=== PATIENT | male | born 1995 | race Caucasian/White ===

== ENCOUNTER 2017-07-17 07:00 | Outpatient (RCR) | payer OTHER, SELFPAY ==
[2017-06-03 06:21] VITALS: BP 112/78; BMI 36.9
--- NOTE | 2017-06-15 08:17 | HP.PTEVAL_ITS ---
Patient's Visit Information JEROME FRANCISCO is a 21 year old M referred to Physical Therapy by SHARI Castanon with a diagnosis of vertigo. Date of Evaluation: 06/15/17 Physical Therapist: Kem Nam DPT, OC - Visit Plan Frequency: 2x /Week Duration: 4 Weeks Plan: 2-3x/week for 4 weeks for progression of vestibular adaptation and habituation exercises. Also to do adaptation in PT with balance challenges. - Subjective Subjective: Got hit with bucket of excavator while sitting on blake pot. That was Apr 13 last year, two months ago. LUNDBERG have subsided, gets dizzyness now which is subtly constantly, intensified with high level activity, bending over, loading grocerys at store. That lasts for a while, hours. Then it gets better. 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 Worse during work and better after work. Sleep is OK. Activities at home are normal. Dizzy described as spinning and lightheaded. No prior history of dizzyness lately. 2 kids and in school. Concentrate in class is OK, reading for a while can lag with eyes adjusting. Kids are 5 and 3. Is on no ladder restriction at work. Has not fallen but sometimes feels like he could and needs to stop and hold onto wall. Not sure what leads to this, they are few and far between. - Objective Walks and transfers I into PT. C/s AROM WFL and without symptoms. - B hallpike bridger and - roll test. Balance is good. steps are reciprocal without rail. VOR walking is moderately symptomatic. Oculomotor... No nystagmus with gaze or head shake. - skew eye deviation. - head thrust. Pursuit is normal and asymptomatic. Saccades is normal and asymptomatic. VOR is mildly symptomatic for short duration. - Balance Scores Functional Gait Assessment Score: 30 % Disability: 0 - Goals Goal 1:: abolish dizzyness with work. Goal Time Frame: 4-6 Weeks Goal 2:: Patient feel back to 100% nromal with activity and studying. Goal Time Frame: 4-6 Weeks - Rehabilitation Potential Physical Therapy Diagnosis: central vertigo form concussion. Rehabilitation Potential: Good - Anticipated Interventions Patient/Client Instruction: Educate patient on: Condition, Plan of Care For the Purpose of:: To increase tolerance to activity/condition/position Comment: adaptation and habituation. For the Purpose of:: To increase tolerance to activity/condition/position, To improve ability of physical actions for home/community/work/leisure Thank you for the opportunity to evaluate your patient. For Medicare and Medicare HMO plans, please review the plan of care and approve it. It will need to be FAXED BACK to us at [phone] for Medicare purposes. Please let me know if there are questions or concerns regarding this plan of care. Physician Signature: Date:
--- NOTE | 2017-07-17 07:14 | HP.PTDCSUM_ITS ---
HP - PT D/C Summary It has been my pleasure to treat JEROME FRANCISCO under orders from SHARI Castanon, for the diagnosis of vertigo for a total of 7 visit(s). Discharge Date: 07/17/17 Please see the following information for a summary of their discharge status. - Subjective Subjective: Climbed ladders and doing OK. No symptoms since Thursday. Likely will cancel f/u with neurologist as he is doing well. Life normal, work normal except big ladder. - Overall Improvement % Improvement: 100 - Objective Objective/Function: No symptoms with MSQ positions. VOR x2 busy walking is good , SLS and tandem challenging balance luis but no symptoms. - Goals Goal 1:: abolish dizzyness with work. Goal Progress: Goal Met Goal 2:: Patient feel back to 100% nromal with activity and studying. Goal Progress: Goal Met - Plan Plan: D/C - D/C Information Discharge Comments: Pt doing well and will let doctor know if symptoms return. If there are questions or concerns regarding this patient's physical therapy, please feel free to call me at [phone]. Thank you for the referral of this patient. Sincerely, Kem Nam, DPT, OC
== END 2017-07-17 19:00 | disposition home or self-care (01) ==
LOC: PT 07:00
PROVIDERS: Visit Provider Physician Assistant
DX: S06.0X0D Concussion without loss of consciousness, subsequent encounter (principal)
CPT/HCPCS: 97110; 97162; 97530

== ENCOUNTER → 2020-01-23 17:43 | Outpatient (CLI) | payer BC, SELFPAY ==
[2017-07-02 06:11] VITALS: BMI 36.9
== END ==
PROVIDERS: PCP Family Medicine; Referring Provider Nurse Practitioner Family; Visit Provider Nurse Practitioner Family
DX: Z20.828 Contact with and (suspected) exposure to other viral communicable diseases (principal)
CPT/HCPCS: 87635; C9803; U0003

== ENCOUNTER → 2020-06-01 15:31 | Outpatient (CLI) | payer OTHER, SELFPAY ==
[2017-07-02 06:11] VITALS: BMI 36.9
[2020-06-01 16:23] LABS: Absolute Lymphocyte Count 1.96 X10^3/uL (0.83-4.51); Absolute Neutrophil Count 7.4 X10^3/uL (2.0-7.7); Basophil# 0.05 X10^3/uL; Basophil% 0.5 % (0-1); Eosinophil# 0.21 X10^3/uL; Hematocrit 45.6 % (40-54); Hemoglobin 14.8 g/dL (13.0-16.5); Lymphocyte # 1.96 X10^3/ul (4.0); Lymphocyte % 18.8 % (19-41); Mean Corp Hgb Conc 32.5 g/dL (32-36); Mean Corpuscular Hgb 27.9 pg (27.0-32.0); Mean Corpuscular Volume 85.9 fL (80-94); Mean Platelet Vol. 10.3 fl (6.2-12.0); Monocyte# 0.77 X10^3/uL; Monocyte% 7.4 % (0-10); NRBC Flagged by Analyzer 0 % (0-5); Neutrophil # 7.39 X10^3/uL (2.7-7.7); Neutrophil % 70.9 % (47-70); Platelet Count 315 K/mm3 (150-450); RBC Distribution Width CV 11.9 % (11.6-14.6); RBC Distribution Width SD 37.9 fl (35.1-43.9); Red Blood Count 5.31 M/mm3 (4.6-6.2); White Blood Count 10.4 K/mm3 (4.4-11.0)
[2020-06-01 16:46] LABS: Anion Gap 7 (5-15); BUN 12 mg/dL (7-18); BUN/Creat Ratio 9.8 RATIO (10-20); Calcium,Total 9.1 mg/dL (8.5-10.1); Chloride 107 mmol/L (98-107); Creatinine, Serum 1.22 mg/dL (0.70-1.30); EST Glomerular Filtration Rate 76 mL/min (>60); Est Glom Filt Rate - Afr Amer 92 mL/min (>60); Glucose 107 mg/dL (74-106); Potassium 3.5 mmol/L (3.5-5.1); Sodium Level 140 mmol/L (136-145)
== END ==
PROVIDERS: PCP Family Medicine; Visit Provider Specialist
DX: Z01.818 Encounter for other preprocedural examination (principal)
CPT/HCPCS: 36415; 80048; 85025

== ENCOUNTER → 2020-06-01 17:25 | Outpatient (CLI) | payer BC, SELFPAY ==
[2017-07-02 06:11] VITALS: BMI 36.9
== END ==
PROVIDERS: PCP Family Medicine; Referring Provider Specialist; Visit Provider Specialist
DX: Z11.59 Encounter for screening for other viral diseases (principal)
CPT/HCPCS: 87635; C9803; U0005; U0003

== ENCOUNTER 2020-11-08 05:58 | Day surgery (SDC) | payer OTHER, BC, SELFPAY ==
[2017-07-02 06:11] VITALS: BMI 36.9
--- NOTE | 2020-10-26 12:03 | EKG12_ITS ---
Test Reason : PREOP Blood Pressure : / mmHG Vent. Rate : 070 BPM Atrial Rate : 070 BPM P-R Int : 158 ms QRS Dur : 102 ms QT Int : 378 ms P-R-T Axes : 044 056 011 degrees QTc Int : 408 ms Normal sinus rhythm with sinus arrhythmia Normal ECG Confirmed by TONY WALL, DEXTER ([id number]), digital editor KASSY KAT ([id number]) on 10/31/2020 2:29:04 PM Referred By: Kd Dean Confirmed By:DEXTER JIMENEZ MD
--- NOTE | 2020-10-26 12:14 | RAD_ITS ---
STUDY: X-RAY CHEST REASON FOR EXAM: Male, 25 years old. PREOP TECHNIQUE: PA and lateral views of the chest. COMPARISON: None. FINDINGS: The lungs are clear and expanded. Scattered calcified granulomas. There is no demonstrated pleural abnormality. Normal size heart. Normal mediastinum and romie. Normal visualized pulmonary arteries. Normal visualized aortic arch and descending thoracic aorta. Normal visualized thoracic spine. Normal visualized ribs, clavicles, and shoulders. There is no demonstrated abnormality of the visualized soft tissue structures of the upper abdomen. RAD/Chest PA and Lateral IMPRESSION: Normal x-ray examination of the chest. Electronically Signed: Az Carroll MD at 15:17 EDT , Service support ,
[2020-10-26 13:40] LABS: Absolute Lymphocyte Count 1.67 X10^3/uL (0.83-4.51); Absolute Neutrophil Count 4.8 X10^3/uL (2.0-7.7); Basophil# 0.04 X10^3/uL; Basophil% 0.6 % (0-1); Eosinophil# 0.18 X10^3/uL; Eosinophils% 2.5 % (0-5); Hematocrit 44.7 % (40-54); Hemoglobin 14.9 g/dL (13.0-16.5); Lymphocyte # 1.67 X10^3/ul (0.83-4.51); Lymphocyte % 23.4 % (19-41); Mean Corp Hgb Conc 33.3 g/dL (32-36); Mean Corpuscular Hgb 28.5 pg (27.0-32.0); Mean Corpuscular Volume 85.6 fL (80-94); Mean Platelet Vol. 10.4 fl (6.2-12.0); Monocyte# 0.39 X10^3/uL; Monocyte% 5.5 % (0-10); NRBC Flagged by Analyzer 0 % (0-5); Neutrophil # 4.84 X10^3/uL (2.7-7.7); Neutrophil % 67.6 % (47-70); Platelet Count 291 K/mm3 (150-450); RBC Distribution Width CV 12.1 % (11.6-14.6); RBC Distribution Width SD 37.7 fl (35.1-43.9); Red Blood Count 5.22 M/mm3 (4.6-6.2); White Blood Count 7.2 K/mm3 (4.4-11.0)
[2020-10-26 13:49] LABS: International Normalized Ratio 1.1; Prothrombin Time (Protime)PT. 13.5 SECONDS (11.7-14.9)
[2020-10-26 13:50] LABS: Partial Thromboplast Time 27.6 Seconds (24.1-36.2)
[2020-10-26 14:02] LABS: Anion Gap 7 (5-15); BUN 17 mg/dL (7-18); Calcium,Total 9.1 mg/dL (8.5-10.1); Chloride 103 mmol/L (98-107); Creatinine, Serum 1.06 mg/dL (0.70-1.30); EST Glomerular Filtration Rate 89 mL/min (>60); Est Glom Filt Rate - Afr Amer 108 mL/min (>60); Glucose 116 mg/dL (74-106); Potassium 3.8 mmol/L (3.5-5.1); Sodium Level 141 mmol/L (136-145)
[2020-10-26 14:19] LABS: Hemoglobin A1c 5.4 % (3.8-5.6)
[2020-11-08 06:30] VITALS: BP 145/92; PULSE 75; RESP 16; TEMP 36.2; O2SAT 98; BMI 42.9
[2020-11-08] MEDS: Lactated Ringers 1,000 ML 100 ML IV ×2 (06:37→09:45)
--- NOTE | 2020-11-08 09:03 | RAD_ITS ---
STUDY: X-RAY - RIGHT ANKLE REASON FOR EXAM: Right ankle pain, intraoperative fluoroscopy for repair of osteochondral defect. TECHNIQUE: 8 intraoperative images of the ankle. COMPARISON: None. FINDINGS: There is syndesmotic fixation. There is an orthopedic plate and screws in the distal fibula. There is an osteochondral lesion of the medial talar dome. There is chronic fracture deformity of the posterior malleolus. 47.4 seconds of fluoroscopy time was used. Electronically Signed: Dennis Schofield MD at 13:04 EDT Tel , Service support , RAD/Ankle 2 Views
[2020-11-08 10:13] VITALS: BP 124/88; BP 145/92; PULSE 86; RESP 14; TEMP 36.2; O2SAT 94
--- NOTE | 2020-11-08 10:15 | RAD_ITS ---
STUDY: X-RAY - RIGHT ANKLE REASON FOR EXAM: Postoperative evaluation of ORIF right distal tibiofibular syndesmosis and osteochondral talar dome lesion. TECHNIQUE: 3 view(s) of the ankle. COMPARISON: Intraoperative images. FINDINGS: There is an orthopedic plate and screws transfixing a distal fibular fracture. There is chronic healed fracture deformity of the posterior malleolus. There is syndesmotic fixation. There is an osteochondral lesion of the medial talar dome. Normal visualized calcaneus. The visualized subtalar, talonavicular, calcaneocuboid and tarsal articulations are normal. There is soft tissue swelling. RAD/Ankle min 3 Views IMPRESSION: Postoperative changes from syndesmotic fixation an osteochondral lesion of the medial talar dome. ORIF of distal fibular fracture and healed posterior malleolar fracture. Electronically Signed: Dennis Schofield MD at 14:16 EDT Tel , Service support ,
--- NOTE | 2020-11-08 10:22 | PCM.DC ---
Discharge Instructions Diet Discharge Diet: Light diet - advance as tolerated Activity Discharge Activity: May Not Drive, May Not Shower, Use Walker and Use Crutches Weight Bearing Status: No weight bearing (to right leg) Keep extremity elevated above heart level: Right Leg Additional Activity Instructions:: 1. Keep dressing to right leg clean, dry, intact. Do not get dressing wet. Do not remove dressing. If get dressing wet, call office for further instruction. 2. Ice around the right knee 30 minutes every hour while awake as needed for pain. 3. Elevate right foot above level of heart as often as possible. Right foot should only be down to use restroom. 4. No walking/standing/placing any weight on right foot. Use crutches/walker/wheelchair for assistance. 5. Begin taking doxycycline (antibiotic) tomorrow, November 09, 2020. 1 pill twice a day as instructed. 6. Begin taking aspirin 81 mg tomorrow, November 09, 2020. 1 pill twice a day. #7. Begin taking Tramadol (pain medication) today, November 08, 2020 as needed and as instructed on the bottle. You may supplement the Tramadol with extra strength Tylenol (acetaminophen). Do not exceed 3000 mg of Tylenol in a 24-hour period. 8. Follow-up with Dr. Dean previously scheduled appointment. Dressing / Incision Call your doctor if your incision/area has: Sudden Increased Bleeding and Increased Pain/ Swelling Call your doctor if you observe: Fever of 101 or Higher, Coldness, Increased Pain, Inability to have a bowel movement, Shortness of breath, Chest pain, Increased palpitations (irregular heartbeat), Calf discomfort and Uncontrolled pain Change Dressing in: do not change dressing Cleanse incision/area with: Keep Dressing Clean & Dry Follow Up Care Please Follow Up With: carl dean When: in one week as previously scheduled Test Results: Test results from this visit will be discussed in further detail at your follow-up appointment, if applicable. Discharge Plan Admission Attending Provider: Carl Dean Primary Care Provider: Leon Waters Discharge Orders/Prescriptions Prescriptions: No Action fluoxetine [Prozac] 40 mg Capsule 40 mg PO DAILY RF: 0 Disposition Discharge Orders: Discharge Patient (Routine); Ordered 11/08/20 Ordered By: Dr. Carl Dean
--- NOTE | 2020-11-08 10:25 | PCM.OPRPT ---
Problems Associated Problem List Diagnoses (1) Syndesmotic disruption of right ankle: (2) Osteochondral defect of ankle: Report of Operation Date of Procedure: 11/08/20 Pre-Operative Diagnosis: 1. Right ankle osteochondral defect, unstable. 2. Right ankle syndesmotic disruption with chronic high ankle sprain Post-Operative Diagnosis: 1. Right ankle osteochondral defect, unstable. 2. Right ankle syndesmotic disruption with chronic high ankle sprai Surgery/Procedure Performed:: 1. Right ankle open reduction with internal fixation of syndesmosis. 2. Right ankle arthroscopic debridement. 3. Right ankle repair of osteochondral defect utilizing allograft Description of Surgical Findings:: Consistent with diagnosis. Removal of osteochondral defect performed with adequate application of cartilage graft. Good reapproximation had of the distal tibiofibular joint after repair of the syndesmosis Surgeon: Kd Dean goat herder: Samina Granados Type of Anesthesia: General/Regional (with a popliteal and adductor canal block given to the right lower extremity pre-operatively) Anesthesiologist: Teofilo Wright Special Medications: 3 grams of ancef given pre-operatively Specimen's removed: None Drains: None Estimated Blood Loss (mL): 10 Description of Procedure: Hemostasis: pneumatic thigh tourniquet placed at the level of the right thigh at 275 mmHg for 58 minutes. EBL: 10mL Materials: 1. Arthrex tight rope. 2. Arthrex bio cartilage. 3. Size 2-0 Vicryl. 4. Size 3-0 vicryl 4. Size 3-0 nylon Injectables: none Complications: none Condition: stable: Indications: Patient is a 25-year-old male with no significant past medical history who suffered a right ankle and foot leg injury in May 2020. Due to the injury that was present, patient underwent a right fibula open reduction with internal fixation with Dr. Ghulam Pelletier. Patient continued to have pain in his right ankle during his postoperative recovery. A MRI of the right ankle was ordered, and patient was referred to me for further evaluation. After reviewing the MRI, there was evidence of an unstable osteochondral defect and chronic high ankle sprain. I discussed conservative and surgical intervention. I discussed the surgical invention would include a right ankle joint arthroscopy with repair of the osteochondral defect, repair of the ankle joint syndesmosis. I discussed the risks and benefits of surgical intervention, including but not limited to delayed or nonhealing wounds, delayed or nonhealing bone/ligament, DVT, infection, decreased function of limb, continued pain, damage to surrounding structures, loss of limb, loss of life. All the patient questions were answered to his satisfaction and all of his concerns were addressed. No guarantees were made as to the outcome of the procedure. Patient understood all aspects of the procedure. Due to the injury that was present, continued pain and his active lifestyle, I recommended surgical intervention. Patient was agreeable to this, and surgery was planned for today, November 08, 2020. Operative report: Before the patient was brought to the operating room, the risks, benefits, possible outcomes, possible complications of the procedure were discussed with the patient once again. All the patient's questions were answered to his satisfaction and all of his concerns were addressed. No guarantees were made as to the outcome of the procedure. Patient understood all aspects of the procedure, and consent was then signed by the patient to proceed with the surgery. Before the patient brought to the operating room, anesthesiologist administered a popliteal and adductor canal block to the right lower extremity. Patient was then brought to the operating room placed on the operating table in the supine position. After timeout, 3 g of Ancef was given for antibiotic prophylaxis. General anesthesia was then obtained and anesthesia took control the airway and the IV access. Next, a well-padded pneumatic thigh tourniquet was placed the level of the right thigh. Next, the right lower extremity was held in the leg calderon with adequate padding placed on the posterior aspect of the right thigh and the popliteal fossa. The right foot, ankle, leg were then scrubbed, prepped, draped in the usual sterile manner. Elevation of the right lower extremity was followed by exsanguination via Esmarch and inflation the pneumatic thigh tourniquet to 275 mmHg. Attention was then directed to the anterior aspect of the right ankle. At this time, the ankle joint line along with the tibialis anterior tendon was palpated and marked. Next, approximately 40 mL of normal sterile saline was injected into the medial aspect of the ankle joint just medial to the tibialis anterior tendon. Immediate dorsiflexion was noted of the ankle joint. At this time, a stab incision was made at the medial aspect of the tibialis anterior tendon at the level of the ankle joint line. Blunt dissection was continued down deep to the level of the ankle joint capsule. Next, a trocar inserted to the cannula was placed at the surgical site and the trocar was used to penetrate the ankle joint capsule. Immediate backflow was noted. The trocar was then removed, and the arthroscope was inserted into the cannula. Visual inspection was then performed of the ankle joint. Chronic synovitic tissue was noted. Furthermore, the osteochondral defect that was present on MRI was noted the medial shoulder of the talar dome. This appeared unstable. Next, transillumination was performed to determine the level of the anterior lateral portal. A #11 blade was used to perform a stab incision at the level of the ankle joint on the anterior lateral aspect of the ankle and an area void of neurovascular structures. Blunt dissection was continued down deep to the level of the ankle joint capsule, which was penetrated. Backflow was noted. Next, a micropick was placed into the anterior lateral portal and triangulation was performed. Inspection was then performed the osteochondral defect which was deemed unstable. At this time, the micropick and the arthroscope were removed and the arthroscope was then placed into the anterior lateral portal. At this time, the shaver for debridement was placed into the anterior medial portal and shaving of the osteochondral defect and chronic synovitic tissue was performed. Next, the shaver was removed, and a hemostat was used to remove the osteochondral defect. This was then passed from the operative site. At this time, the micropick was used to perform subchondral penetration in the area of the osteochondral defect. Once adequate preparation of the osteochondral defect was performed, the ankle joint was suctioned to remove fluid. Once adequate fluid was removed, visual inspection was then performed of the osteochondral defect once again. The Arthrex bio cartilage was prepared, and the bio cartilage was placed through the anterior medial portal into the osteochondral defect. Adequate covering of the osteochondral defect was performed. Next, the fibrin glue was placed over the bio cartilage. Once adequate preparation and the positioning of the bio cartilage and the fibrin glue was performed, the arthroscope was then removed. The bio cartilage and fibrin glue set for period of 5 minutes. Once adequate setting was had, the pneumatic thigh tourniquet was then released and a prompt hyperemic response was noted to the right lower extremity. The leg was then removed from the leg calderon. The subcutaneous tissues at the arthroscope sites were reapproximated coapted utilizing size 3-0 Vicryl. The skin was reapproximated coapted utilizing 3-0 nylon in a horizontal mattress fashion. At this time, live radiograph evaluation was used to determine the level of the ankle joint, syndesmosis, and lateral aspect of the fibula. Furthermore, the hole of the fibula plate that corresponded to the syndesmosis was identified. These were all marked on the patient. Attention was then directed to the lateral aspect of the right ankle near the lateral malleolus. At this time, #15 blade was used to perform a linear longitudinal incision at the level of the open hole of the fibular plat. Incision was approximately 2 cm in length. The incision was deepened utilizing sharp and blunt dissection. Care was taken retract all vital neural and vascular structures. All bleeders were cauterized and ligated as necessary. Next, a linear periosteal incision was made in line of the original skin incision. The periosteal capsular structures then reflected anteriorly and posteriorly, thus exposing the open hole of the fibula plate at the operative site. Reduction of the syndesmosis was performed. The clamp was used to reduce the syndesmosis from lateral to medial with the foot held in a neutral position. Adequate reduction of the syndesmosis was had. The open hole in the current fibula plate was then drilled appropriately, and to the Arthrex tight rope with were inserted into the plate from lateral to medial. Tightening of the Arthrex tight rope was performed in standard fashion. Once adequate tightening was had, all temporary fixation was then removed. Radiograph evaluation was then performed. Reduction of the syndesmosis was noted. The cotton and hook test were performed, and the syndesmosis was deemed stable at this time. Each surgical site was irrigated with copious amounts of normal sterile saline and irrisept. The periosteal and capsular structures of the surgical site was reapproximated and coapted utilizing size 2-0 Vicryl. The subcutaneous tissues of the surgical site was reapproximated and coapted utilizing size 3-0 Vicryl. The skin of the surgical site was reapproximated coapted utilizing size 3-0 nylon in a simple interrupted horizontal mattress fashion. Each surgical site was then dressed with Betadine soaked gauze, and a dry sterile dressing setting of 4 x 4 gauze, ABD pads, wrapped with Kerlix. The right foot and ankle were then wrapped in David bandage. Next, a stockinette was placed over the right lower extremity. Cast padding was wrapped in the metatarsal heads extending proximally to level just distal to the tibial tuberosity. A posterior splint was fashioned to the right lower extremity and was adhered to the right lower extremity utilizing David bandages. Care was taken make sure that the foot was held in a neutral position as the posterior splint dried. The patient tolerated the anesthesia the procedure well and was transported to the PACU with vital signs stable and neurovascular status intact to the right lower extremity. After period of postoperative monitoring, patient be discharged home with written and oral instructions for wound care and follow-up. The special events assistant, the physician registered sales assistant, was utilized throughout the entire procedure. She helped with patient positioning, holding of limb, holding retractors. She helped with exposure throughout. She helped with bandage application, and cast application. Without the surgical territory manager, surgical time would have been increased and surgical outcome could have been less optimal Admit VTE Documentation VTE Present on Admission: No (Patient to begin ASA 81mg BID starting 11/09 for DVT prophylaxis) VTE Mechan Device Prophylaxis: SCD's VTE Pharm Prophylaxis ordered?: Yes
[2020-11-08 10:30] VITALS: BP 123/69; BP 145/92; PULSE 72; RESP 16; O2SAT 93
[2020-11-08 10:45] VITALS: BP 134/77; BP 145/92; PULSE 80; RESP 16; TEMP 36.6; O2SAT 95
[2020-11-08 11:37] VITALS: BP 136/76; BP 145/92; PULSE 82; RESP 16; TEMP 36.2; O2SAT 98
== END 2020-11-08 11:45 | disposition home or self-care (01) ==
LOC: SDC 05:58 → AC 05:58
PROVIDERS: PCP Family Medicine; Referring Provider Podiatrist Foot & Ankle Surgery; Visit Provider Podiatrist Foot & Ankle Surgery
PROC: (CPT 27829; principal; 2020-11-08 07:10)
DX: S93.431A Sprain of tibiofibular ligament of right ankle, initial encounter (principal); M21.961 Unspecified acquired deformity of right lower leg; M93.271 Osteochondritis dissecans, right ankle and joints of right foot; E66.01 Morbid (severe) obesity due to excess calories; S82.391A Other fracture of lower end of right tibia, initial encounter for closed fracture; S82.831A Other fracture of upper and lower end of right fibula, initial encounter for closed fracture; Z68.41 Body mass index [BMI] 40.0-44.9, adult; X58.XXXA Exposure to other specified factors, initial encounter
CPT/HCPCS: 27829; 29898; 36415; 71046; 73600; 73610; 76000; 80048; 83036; 85025; 85610; 85730; 93005; J7120; J2405

== ENCOUNTER → 2021-12-21 | Outpatient (CLI) | payer BC, SELFPAY ==
[2021-12-21 11:27] LABS: Hematocrit 43.7 % (40-54); Hemoglobin 14.8 g/dL (13.0-16.5); Mean Corp Hgb Conc 33.9 g/dL (32-36); Mean Corpuscular Hgb 28.7 pg (27.0-32.0); Mean Corpuscular Volume 84.9 fL (80-94); Mean Platelet Vol. 9.4 fl (6.2-12.0); Platelet Count 295 K/mm3 (150-450); RBC Distribution Width SD 36.8 fl (35.1-43.9); Red Blood Count 5.15 M/mm3 (4.6-6.2)
[2021-12-21 12:50] LABS: AST(SGOT) 26 U/L (15-37); Alanine Aminotransfer ALT/SGPT 43 U/L (16-61); Cholesterol 216 mg/dL (200); Ferritin 125 ng/mL (26-388); High Density Lipoprotein 36 mg/dL; Iron 116 ug/dL (65-175); Iron Binding Capacity,Total 346 ug/dL (250-450); PERCENT IRON SATURATION 33.5 % (15.0-55.0); Thyroid Stim Hormone (TSH) 1.38 uIU/mL (0.358-3.74); Triglycerides 317 mg/dL; Very Low Density Lipoprotein 63 mg/dL (5-40)
[2021-12-23 09:22] LABS: Vitamin B12 497 pg/mL (211-911); Vitamin D,25 Hydroxy 22.7 ng/mL
== END | disposition home or self-care (01) ==
LOC: LAB 11:09
PROVIDERS: PCP Family Medicine; Referring Provider Physician Assistant; Visit Provider Physician Assistant
DX: Z79.899 Other long term (current) drug therapy (principal)
CPT/HCPCS: 36415; 80061; 82306; 82607; 82728; 82746; 83540; 83550; 84443; 84450; 84460; 85027

== ENCOUNTER → 2022-06-28 | Outpatient (CLI) | payer OTHER, SELFPAY ==
--- NOTE | 2022-06-28 06:52 | MRI_ITS ---
STUDY: MRI LUMBAR SPINE WITHOUT CONTRAST REASON FOR EXAM: Male, 26 years old. Low back pain, prior herniated disc L5-S1 TECHNIQUE: Standardized fat and water weighted pulse sequences were obtained in the sagittal and axial planes. COMPARISON: None FINDINGS: T12-L1: Normal endplates. Normal disc height, hydration and morphology. Normal bilateral facet joints. Normal central canal and bilateral lateral recesses. Normal bilateral intervertebral neural foramina. Normal lumbar lordosis. There is no substantial scoliosis. Normal conus medullaris that terminates at the T12 level. L1-2: Normal endplates. Normal disc height, hydration and morphology. Normal bilateral facet joints. Normal central canal and bilateral lateral recesses. Normal bilateral intervertebral neural foramina. L2-3: Normal endplates. Normal disc height, hydration and morphology. Normal bilateral facet joints. Normal central canal and bilateral lateral recesses. Normal bilateral intervertebral neural foramina. L3-4: Normal endplates. Normal disc height, hydration and morphology. Normal bilateral facet joints. Normal central canal and bilateral lateral recesses. Normal bilateral intervertebral neural foramina. L4-5: Normal endplates. Normal disc height, hydration and morphology. There is mild spurring of the bilateral facet joints. Normal central canal and bilateral lateral recesses. Normal bilateral intervertebral neural foramina. L5-S1: Disc space narrowing with endplate change. Disc bulge and spurring. Facet spurring. No canal stenosis. Mild foraminal narrowing Normal visualized sacral ala. Normal visualized paraspinous soft tissue structures. MRI/Spine Lumbar (Routine) IMPRESSION: Degenerative change with L5-S1 foraminal narrowing. Electronically Signed: Marck Whitt MD at 15:03 EST ,
== END | disposition home or self-care (01) ==
PROVIDERS: PCP Family Medicine; Visit Provider Orthopaedic Surgery
DX: M51.27 Other intervertebral disc displacement, lumbosacral region (principal)
CPT/HCPCS: 72148

== ENCOUNTER → 2023-01-05 | Outpatient (CLI) | payer OTHER, SELFPAY ==
--- NOTE | 2023-01-03 | VAS_PTH ---
PATIENT: JEROME FRANCISCO LOC: [facility]#:[id number] AGE/SX: 27/M ROOM: RE01/05/[address]: Dr. Calderon Saldaña MD : 1995 BED: DIS: 01/05/2023 SPEC #: [id number] RECD: 01/05/23 08:41 STATUS: HAIDER REQ #: [id number] ANUPAMA: 01/03/23 00:[address]: Calderon Saldaña DEPT: SURGICAL PATHOLOGY RECD BY: Hardy Souza ENTERED: 01/05/23 10:24 SP TYPE: VAS OTHR DR: Dr. Leon Waters MD Tissues: A - Vas deferens, NOS B - Vas deferens, NOS Procedures: Surgery Specimen Level II HEADER OPERATION: Bilateral partial vasectomy PRE-OP DIAGNOSIS: Sterilization TISSUE SUBMITTED: A - Left vas deferens, B - Right vas deferens MICROSCOPIC DIAGNOSIS A. Left vas deferens, partial vasectomy: Completely transected segment of vas deferens, no pathologic diagnosis. B. Right vas deferens, partial vasectomy: Completely transected segment of vas deferens, no pathologic diagnosis. DILIP:helio 01/06/2023 MICROSCOPIC DESCRIPTION Slides are reviewed. GROSS DESCRIPTION A - Received is one container designated left vas deferens. The specimen consists of a tubular segment of ordoñez soft tissue measuring 1.1 cm in length and 0.2 cm in diameter. The specimen is sectioned and submitted entirely in one cassette. B - Received is one container designated right vas deferens. The specimen consists of a tubular segment of ordoñez soft tissue measuring 1.2 cm in length and 0.3 cm in diameter. The specimen is sectioned and submitted entirely in one cassette. / DILIP:helio 01/05/2023 TC:4 [facility]: [id number] x2
== END | disposition home or self-care (01) ==
LOC: LABSPEC 08:53
PROVIDERS: PCP Family Medicine; Referring Provider Surgery; Visit Provider Surgery
DX: Z30.2 Encounter for sterilization (principal)
CPT/HCPCS: 88302

== ENCOUNTER → 2023-02-20 | Outpatient (CLI) | payer OTHER, SELFPAY ==
[2023-02-20 12:51] LABS: Semen Analysis Post Vas PATH REVIEW ONLY
[2023-02-24 10:11] LABS: Pathologist Review Reviewed
== END | disposition home or self-care (01) ==
LOC: LABSPEC 12:21
PROVIDERS: PCP Family Medicine; Referring Provider Physician Assistant; Visit Provider Physician Assistant
DX: Z30.2 Encounter for sterilization (principal)
CPT/HCPCS: 89321

== ENCOUNTER → 2023-04-01 | Outpatient (CLI) | payer OTHER, SELFPAY ==
[2023-04-01 11:39] LABS: Semen Analysis Post Vas PATH REVIEW ONLY
[2023-04-03 09:04] LABS: Pathologist Review Reviewed
== END | disposition home or self-care (01) ==
LOC: LABSPEC 09:20
PROVIDERS: PCP Family Medicine; Referring Provider Physician Assistant; Visit Provider Physician Assistant
DX: Z30.2 Encounter for sterilization (principal)
CPT/HCPCS: 89321

== ENCOUNTER → 2023-10-03 | Outpatient (CLI) | payer OTHER, SELFPAY ==
[2023-10-03 10:23] LABS: Hematocrit 43.4 % (40-54); Hemoglobin 14.9 g/dL (13.0-16.5); Mean Corp Hgb Conc 34.3 g/dL (32-36); Mean Corpuscular Hgb 29.2 pg (27.0-32.0); Mean Corpuscular Volume 85.1 fL (80-94); Mean Platelet Vol. 9.6 fl (6.2-12.0); Platelet Count 294 K/mm3 (150-450); RBC Distribution Width CV 11.7 % (11.6-14.6); RBC Distribution Width SD 35.8 fl (35.1-43.9)
[2023-10-03 11:14] LABS: AST(SGOT) 29 U/L (15-37); Alanine Aminotransfer ALT/SGPT 45 U/L (16-61); Albumin, Serum 3.8 g/dL (3.2-5.0); Alkaline Phosphatase 76 U/L (45-117); Anion Gap 7 (5-15); BUN 15 mg/dL (7-18); BUN/Creat Ratio 13.8 RATIO (10-20); Calcium,Total 9.1 mg/dL (8.5-10.1); Chloride 106 mmol/L (98-107); Creatinine, Serum 1.09 mg/dL (0.70-1.30); EST Glomerular Filtration Rate 84 mL/min (>60); Est Glom Filt Rate - Afr Amer 102 mL/min (>60); Ferritin 214 ng/mL (26-388); Glucose 118 mg/dL (74-106); Iron 84 ug/dL (65-175); Iron Binding Capacity,Total 329 ug/dL (250-450); Protein, Total 7.8 g/dL (6.4-8.2); Sodium Level 138 mmol/L (136-145)
[2023-10-03 12:02] LABS: Hemoglobin A1c 5.6 % (3.8-5.6)
[2023-10-05 09:30] LABS: Vitamin B12 453 pg/mL (211-911); Vitamin D,25 Hydroxy 26.8 ng/mL
== END | disposition home or self-care (01) ==
PROVIDERS: PCP Family Medicine; Referring Provider Physician Assistant; Visit Provider Physician Assistant
DX: Z79.899 Other long term (current) drug therapy (principal)
CPT/HCPCS: 36415; 80053; 82306; 82607; 82728; 82746; 83036; 83540; 83550; 85027